=== PATIENT | female | born 2000 | race Caucasian/White ===

== ENCOUNTER 2022-08-05 21:21 | Emergency (ER) | payer BC, OTHER, SELFPAY ==
[2022-08-05] MEDS ORDERED: Ibuprofen 100 MG/5 ML UDCUP ONE (22:06)
== END 2022-08-05 22:55 | disposition home or self-care (01) ==
LOC: BURERS 21:21
DX: B34.9 Viral infection, unspecified (principal); E05.90 Thyrotoxicosis, unspecified without thyrotoxic crisis or storm; Z79.899 Other long term (current) drug therapy
CPT/HCPCS: 87804; 99283